=== PATIENT | male | born 2000 | race Caucasian/White ===

== ENCOUNTER 2019-05-17 18:13 | Emergency (ER) | payer BC ==
[~2019-05-17] VITALS: Wt 89.0 kg
[~2019-05-17 18:13] MED LIST: ACET1TAB40 PO; BISM262O23 PO; PRED20TA PO
[2019-05-17 18:16] VITALS: BP 127/82; PULSE 78; RESP 18
== END 2019-05-17 18:43 | disposition home or self-care (01) ==
LOC: FTE 18:13 → E/R 18:43
DX: H93.91 Unspecified disorder of right ear (principal)
CPT/HCPCS: 99283